=== PATIENT | female | born 1960 | race Two or more races ===

== ENCOUNTER 2018-09-03 16:12 | Emergency (ER) | payer OTHER ==
[~2018-09-03] VITALS: Ht 165.1 cm; Wt 68.0 kg
--- NOTE | 2018-09-03 17:24 | NUR ---
LEILA PATE AT THE BEDSIDE FOR MSE.
[2018-09-03] MEDS ORDERED: IBUPROFEN 600 MG TABLET PO ONE (17:30)
[2018-09-03] MEDS ORDERED: IBUPROFEN 600 MG TABLET ONE (17:31)
[2018-09-03 18:24] VITALS: BP 122/78
--- NOTE | 2018-09-03 18:29 | NUR ---
Patient discharged to home in stable conditon. Written and verbal after care instructions given. Patient verbalizes understanding of instructions. PT LEFT ER W/ STEADY GAIT ACCOMPAINED BY FAMILY.
== END 2018-09-03 18:30 | disposition home or self-care (01) ==
LOC: ER 16:14
DX: S13.4XXA Sprain of ligaments of cervical spine, initial encounter (principal); S09.90XA Unspecified injury of head, initial encounter; S39.91XA Unspecified injury of abdomen, initial encounter; Z88.2 Allergy status to sulfonamides; Z91.040 Latex allergy status; V48.5XXA Car driver injured in noncollision transport accident in traffic accident, initial encounter; Y93.89 Activity, other specified; Y92.410 Unspecified street and highway as the place of occurrence of the external cause; Y99.8 Other external cause status
CPT/HCPCS: A4663